=== PATIENT | female | born 1985 | race Caucasian/White ===

== ENCOUNTER 2017-01-23 17:39 | Emergency (ER) | payer OTHER ==
[~2017-01-23] VITALS: Ht 167.6 cm; Wt 76.8 kg
[~2017-01-23 17:39] MED LIST: PEN-VEE K,VEET500 MG PO; PERCOCET 5/31 TABLET PO
[2017-01-23 17:59] VITALS: BP 123/94
[2017-01-23] MEDS ORDERED: LIDOCAINE20 MG/1 M5 PO (18:31)
[2017-01-23] MEDS ORDERED: PEN-VEE K,VEET500 MG PO (18:31)
[2017-01-23] MEDS ORDERED: INDOCIN50 MG PO (18:31)
== END 2017-01-23 18:56 | disposition home or self-care (01) ==
LOC: EME 17:39
DX: K02.9 Dental caries, unspecified (principal); F17.210 Nicotine dependence, cigarettes, uncomplicated; F41.9 Anxiety disorder, unspecified
CPT/HCPCS: 99281; 99284